=== PATIENT | male | born 1965 | race Caucasian/White ===

== ENCOUNTER 2016-04-07 23:57 | Emergency (ER) | payer OTHER ==
[~2016-04-07] VITALS: Ht 172.7 cm; Wt 104.0 kg
[2016-04-08 00:26] LABS: HEMATOCRIT 42.6 % (38.0-50.0); MCH 29.7 PG (29.0-34.0); MCV 87.3 FL (86-99); MEAN PLAT.VOLUME 9.1 uM^3 (9.0-12.4); PLATELET COUNT 281 K/uL (156-360); RBC DIS.WIDTH-CV 12.8 % (11.8-14.6); RED BLOOD COUNT 4.88 M/uL (4.00-5.50); WHITE BLOOD COUNT 7.7 K/uL (4.1-10.2)
[2016-04-08 00:38] LABS: CHLORIDE 105 mEq/L (99-109)
[2016-04-08 00:39] LABS: POTASSIUM 4.1 mEq/L (3.7-5.4); SODIUM 141 mEq/L (136-147)
[2016-04-08 00:40] LABS: GLUCOSE 109 mg/dL (70-99)
[2016-04-08 00:42] LABS: ANION GAP 10 MEQ/L (2-14)
[2016-04-08 00:44] LABS: GFR ESTIMATE (CALCULATED) > 59 mL/min/
[2016-04-08 00:45] LABS: UREA NITROGEN (BUN) 13 mg/dL (9-23)
[2016-04-08 00:47] LABS: TROP-I INTERPRETATION NEGATIVE; TROPONIN-I < 0.01 ng/mL (0.0-0.30)
[2016-04-08 04:11] LABS: TROP-I INTERPRETATION NEGATIVE; TROPONIN-I < 0.01 ng/mL (0.0-0.30)
[2016-04-08 04:53] VITALS: BP 105/64
== END 2016-04-08 04:55 | disposition home or self-care (01) ==
LOC: EME → EDBD 23:57 → EME 23:57
PROVIDERS: Emergency Medicine
DX: R07.9 Chest pain, unspecified (principal); R00.2 Palpitations; R06.02 Shortness of breath
CPT/HCPCS: 71010; 80048; 84484; 85027; 93005; 99281; 99285